=== PATIENT | female | born 1960 | race Caucasian/White ===

== ENCOUNTER 2017-01-03 20:41 | Emergency (ER) | payer OTHER ==
[2017-01-03 20:51] VITALS: BP 113/76
[2017-01-03] MEDS ORDERED: PROPARACAINE 0.5% OPHTH DROPS 15 ML EACHEYE STA (22:08)
--- NOTE | 2017-01-03 22:09 | ED Physician Documentation ---
PD HPI OPHTHO - Stated complaint Stated Complaint: LT EYE PX - Chief complaint Chief Complaint: Heent - History obtained from History obtained from: Patient - History of Present Illness Timing - onset: Today (with redness and swelling. The eye has been itchy for couple of days, with mild matting and redness. Tried Visine without improvement. Today it is more red and swelling, and has feeling of FB in eye.) Timing - details: Gradual onset, Still present Location: Left. No: Right Quality / character: Itching, Burning Associated symptoms: Redness, Swelling, Matting, FB sensation. No: Photophobia , Double vision, Decreased vision Contributing factors: No: Exposed to conjunctivitis, Recent URI (but has been itchy eye for couple days.), Wears contacts Similar symptoms before: Has not had sx before Recently seen: Not recently seen Review of Systems Constitutional: denies: Fever, Chills Eyes: denies: Loss of vision, Photophobia Nose: denies: Rhinorrhea / runny nose, Congestion Throat: denies: Sore throat Respiratory: denies: Cough PD PAST MEDICAL HISTORY - Past Medical History Past Medical History: No - Past Surgical History Past Surgical History: Yes /WIND[employer]ST[employer]ER: section - Present Medications Home Medications: Ambulatory Orders Medication Instructions Recorded Confirmed buPROPion [Wellbutrin Xl] 150 mg PO DAILY 01/03/17 01/03/17 - Allergies Allergies/Adverse Reactions: Allergies Allergy/AdvReac Type Severity Reaction Status Date / Time No Known Drug Allergies Allergy Verified 01/03/17 20:50 - Social History Does the pt smoke?: No Smoking Status: Never smoker Does the pt drink ETOH?: Yes ETOH Use: Wine Does the pt have substance abuse?: No - Immunizations Immunizations are current?: Yes PD ED PE NORMAL - Vitals Vital signs reviewed: Yes - General General: Alert and oriented X 3, Well developed/nourished - HEENT HEENT: Ears normal, Pharynx benign - Neck Neck: Supple, no meningeal sign, No adenopathy PD ED PE EXPANDED - Eyes Eyes: PERRL, EOMI, Left eye, Injected conj/sclera, Exudate, Fluorescein uptake ( faint linear line lateral eye), Anterior chambers clear, Normal fundi. No: EOM palsy, Eyelid swelling, Eyelid erythema, Conj/sclera FB, Corneal FB, Hyphema Results - Vitals Vitals: Oxygen O2 Source Room air PD MEDICAL DECISION MAKING - ED course Complexity details: reviewed results, considered differential (conjunctival redness and swelling, with some matting. Only the one eye. No FB. Possible superficial abrasion (faint linear dye uptake). ), d/w patient Departure - Departure Disposition: 01 Home, Self Care Clinical Impression: Conjunctivitis Qualifiers: Conjunctivitis type: acute Acute conjunctivitis type: bacterial Laterality: left Qualified Code(s): H10.32 - Unspecified acute conjunctivitis, left eye Condition: Stable Record reviewed to determine appropriate education?: Yes Instructions: ED Conjunctivitis Nonspecific Follow-Up: LAURIE HORN [Primary Care Provider] - Comments: Use the eyedrops 2-3 drops 4 times a day for the next 4-5 days until fully improved. Recheck if not improved over the next few days. Tylenol or ibuprofen if needed for pains. Discharge Date/Time: 01/03/17 22:35
[2017-01-03] MEDS ORDERED: PROPARACAINE 0.5% OPHTH DROPS 15 ML ONE (22:16)
[2017-01-03] MEDS ORDERED: NEOMYCIN/POLYMYX/DEXAMETH OPHTH DROPS 5 ML LEFTEYE STA (22:24)
[2017-01-03] MEDS ORDERED: NEOMYCIN/POLYMYX/DEXAMETH OPHTH DROPS 5 ML ONE (22:32)
== END 2017-01-03 22:35 | disposition home or self-care (01) ==
LOC: ED 20:41
DX: H10.32 Unspecified acute conjunctivitis, left eye (principal)
CPT/HCPCS: 99282; 99283; J3490